=== PATIENT | male | born 1960 | race Caucasian/White ===

== ENCOUNTER 2017-10-02 15:53 | Emergency (ER) | payer OTHER ==
[~2017-10-02] VITALS: Wt 72.7 kg
[2017-10-02] MEDS ORDERED: [UNRECOGNIZED DRUG - OTHER] PO (16:03)
[2017-10-02] MEDS ORDERED: MORPHINE SUL30 M3 PO (16:04)
[2017-10-02] MEDS ORDERED: LYRICA50 MG PO (16:04)
[2017-10-02 17:16] LABS: HEMATOCRIT 24.5 % (39.0-50.0); HEMOGLOBIN 8.1 g/dl (14.0-18.0); MEAN CELL VOLUME 93.2 fL CALC (80.0-100.0); MEAN CORPUSCULAR HGB 30.8 pG CALC (26.0-32.0); MEAN CORPUSCULAR HGB CONC 33.1 g/L CALC (32.0-36.0); NEUT# 2.64 thou/uL (1.82-7.42); RED BLOOD COUNT 2.63 mill/uL (4.70-6.10); RED CELL DISTRI WIDTH 15.9 % (11.5-15.5)
[2017-10-02 17:18] LABS: ALBUMIN 3.3 g/dL (3.2-5.0); ALKALINE PHOSPHATASE 77 u/l (38-126); ANION GAP 12 (6-22 (CALC)); BILIRUBIN, TOTAL 1.5 mg/dL (0.0-1.4); BUN 15 mg/dL (9-20); BUN/CREATININE RATIO 25 (12-20 (CALC)); CARBON DIOXIDE 35 mmol/l (22-30); CHLORIDE 93 mmol/l (95-108); CREATININE 0.6 mg/dL (0.7-1.3); GFR > 60 ML/MIN (>=60 (CALC)); GFR FOR AFR.AMER. > 60 ML/MIN (>=60 (CALC)); POTASSIUM 3.8 mmol/l (3.5-5.1); SGOT/AST 38 u/l (17-59); SGPT/ALT 28 u/l (21-72); SODIUM 136 mmol/l (137-146); TOTAL PROTEIN 7.2 g/dL (6.3-8.2)
[2017-10-02 17:27] LABS: MYOGLOBIN 51 ng/mL (0 - 121)
[2017-10-02 18:14] LABS: URINE BILIRUBIN - DIPSTICK NEGATIVE (NEGATIVE); URINE BLOOD DIPSTICK NEGATIVE (NEGATIVE); URINE GLUCOSE - DIPSTICK NEGATIVE (NEGATIVE); URINE KETONE NEGATIVE (NEGATIVE); URINE LEUK ESTERASE NEGATIVE (NEGATIVE); URINE NITRITE - DIPSTICK NEGATIVE (Negative); URINE PROTEIN - DIPSTICK TRACE mg/dL (NEG-TRACE)
[2017-10-02 18:18] LABS: URINE CLARITY CLEAR
[2017-10-02 18:19] LABS: BARBITURATES NEGATIVE (NEGATIVE); COCAINE NEGATIVE (NEGATIVE); METHADONE NEGATIVE (NEGATIVE); OXCYCODONE NEGATIVE (NEGATIVE); TETRAHYDROCANNABIONOL POSITIVE (NEGATIVE); TRICYLIC ANTIDEPRESSANTS NEGATIVE (NEGATIVE); URINE COLOR DK. YELLOW
[2017-10-02] MEDS ORDERED: FEOSOL45 MG PO (18:48)
[2017-10-02] MEDS ORDERED: NAPROSYN500 MG PO (18:49)
[2017-10-02] MEDS ORDERED: LASIX20 MG PO (18:52)
[2017-10-02] MEDS ORDERED: K-TAB20 MEQ PO (18:54)
[2017-10-02 19:17] VITALS: BP 137/60
== END 2017-10-02 19:18 | disposition home or self-care (01) ==
LOC: ED 15:53
PROVIDERS: Emergency Medicine
DX: R60.0 Localized edema (principal); D64.9 Anemia, unspecified; J44.9 Chronic obstructive pulmonary disease, unspecified; C95.90 Leukemia, unspecified not having achieved remission; F17.210 Nicotine dependence, cigarettes, uncomplicated; Z99.3 Dependence on wheelchair; M79.605 Pain in left leg; M79.604 Pain in right leg; R20.2 Paresthesia of skin

== ENCOUNTER 2017-12-27 08:49 | Emergency (ER) | payer OTHER ==
[~2017-12-27] VITALS: Ht 180.3 cm; Wt 82.0 kg
[~2017-12-27 08:49] MED LIST: FEOSOL45 MG PO; K-TAB20 MEQ PO; LASIX20 MG PO; LYRICA50 MG PO; MORPHINE PO; MORPHINE SUL30 M3 PO; NALTREXONE PO; NAPROSYN500 MG PO; [UNRECOGNIZED DRUG - OTHER] PO
[2017-12-27] MEDS ORDERED: ALLOPURINOL300 MG PO (09:20)
[2017-12-27] MEDS ORDERED: ASPIRIN81 MG PO (09:20)
[2017-12-27] MEDS ORDERED: HYDROXYUREA500 MG PO (09:21)
[2017-12-27] MEDS ORDERED: METOPROL TAR25 MG PO (09:22)
[2017-12-27] MEDS ORDERED: LYRICA300 MG PO (09:23)
[2017-12-27] MEDS ORDERED: RENAGEL 800MG800 MG PO ×2 (09:24→11:04)
[2017-12-27] MEDS ORDERED: HYDROMORPHON4 MG PO (09:25)
[2017-12-27] MEDS ORDERED: PONATINIB PO (09:27)
[2017-12-27 09:44] LABS: URINE BILIRUBIN - DIPSTICK NEGATIVE (NEGATIVE); URINE BLOOD DIPSTICK MODERATE (NEGATIVE); URINE COLOR YELLOW; URINE GLUCOSE - DIPSTICK NEGATIVE (NEGATIVE); URINE KETONE NEGATIVE (NEGATIVE); URINE NITRITE - DIPSTICK NEGATIVE (Negative); URINE PROTEIN - DIPSTICK 30 mg/dL (NEG-TRACE); URINE SPECIFIC GRAVITY 1.025
[2017-12-27 09:46] LABS: URINE CLARITY TURBID; URINE LEUK ESTERASE SMALL (NEGATIVE); URINE WBC 20-50 WBC/hpf (0-5)
[2017-12-27 09:47] LABS: URINE BACTERIA MODERATE hpf; URINE EPITHELIAL CELLS MANY EPI/hpf (0-FEW)
[2017-12-27 09:51] LABS: BARBITURATES NEGATIVE (NEGATIVE); COCAINE NEGATIVE (NEGATIVE); METHADONE NEGATIVE (NEGATIVE); OXCYCODONE NEGATIVE (NEGATIVE); TETRAHYDROCANNABIONOL NEGATIVE (NEGATIVE); TRICYLIC ANTIDEPRESSANTS NEGATIVE (NEGATIVE)
[2017-12-27 10:30] LABS: HEMOGLOBIN 9.2 g/dl (14.0-18.0); MEAN CELL VOLUME 93.9 fL CALC (80.0-100.0); MEAN CORPUSCULAR HGB 29.8 pG CALC (26.0-32.0); MEAN CORPUSCULAR HGB CONC 31.7 g/L CALC (32.0-36.0); NEUT# 9.19 thou/uL (1.82-7.42); RED BLOOD COUNT 3.09 mill/uL (4.70-6.10); RED CELL DISTRI WIDTH 17.2 % (11.5-15.5)
[2017-12-27 10:38] LABS: ALKALINE PHOSPHATASE 120 u/l (38-126); BILIRUBIN, TOTAL 1.6 mg/dL (0.0-1.4); CARBON DIOXIDE 23 mmol/l (22-30); CHLORIDE 110 mmol/l (95-108); MAGNESIUM 2.2 mg/dL (1.6-2.3); SGOT/AST 58 u/l (17-59); SODIUM 145 mmol/l (137-146); TOTAL PROTEIN 7.7 g/dL (6.3-8.2)
[2017-12-27 10:42] LABS: ALBUMIN 3.9 g/dL (3.2-5.0); ANION GAP 18 (6-22 (CALC)); BUN 93 mg/dL (9-20); BUN/CREATININE RATIO 36 (12-20 (CALC)); CREATININE 2.6 mg/dL (0.7-1.3); ETHYL ALCOHOL 0 mg/dl (0-30); GFR 25 ML/MIN (>=60 (CALC)); GFR FOR AFR.AMER. 31 ML/MIN (>=60 (CALC)); POTASSIUM 6.1 mmol/l (3.5-5.1)
[2017-12-27] MEDS ORDERED: FUROSEMIDE20 MG PO (10:57)
[2017-12-27] MEDS ORDERED: K-DUR/KLOR-CON20 MEQ PO (10:58)
[2017-12-27] MEDS ORDERED: MORPHINE SULFAT30 M1 PO (10:59)
[2017-12-27] MEDS ORDERED: ICLUSIG PO (11:03)
[2017-12-27 11:04] LABS: INTERNATIONAL NORMALIZED RATIO 1.1 RATIO (0.7-1.3); PROTHROMBIN TIME 11.1 SECONDS (9.0-12.5)
[2017-12-27 12:50] VITALS: BP 116/73
== END 2017-12-27 12:50 | disposition short-term general hospital (02) ==
LOC: ED 08:49
PROVIDERS: Emergency Medicine
DX: N17.9 Acute kidney failure, unspecified (principal); J18.9 Pneumonia, unspecified organism; E87.5 Hyperkalemia; F19.10 Other psychoactive substance abuse, uncomplicated; N39.0 Urinary tract infection, site not specified; C95.90 Leukemia, unspecified not having achieved remission; J44.9 Chronic obstructive pulmonary disease, unspecified; R20.2 Paresthesia of skin; Z95.2 Presence of prosthetic heart valve; Z86.718 Personal history of other venous thrombosis and embolism; Z99.3 Dependence on wheelchair; Z79.899 Other long term (current) drug therapy

== ENCOUNTER 2018-04-05 08:32 | Outpatient (RCR) | payer OTHER ==
[~2018-04-05 08:32] MED LIST changes: +ALLOPURINOL300 MG PO; +ASPIRIN81 MG PO; +FUROSEMIDE20 MG PO; +HYDROMORPHON4 MG PO; +HYDROXYUREA500 MG PO; +ICLUSIG PO; +K-DUR/KLOR-CON20 MEQ PO; +LYRICA300 MG PO; +METOPROL TAR25 MG PO; +MORPHINE SULFAT30 M1 PO; +PONATINIB PO; +RENAGEL 800MG800 MG PO
== END 2018-04-05 11:00 | disposition home or self-care (01) ==
LOC: OPWC 08:32
PROVIDERS: ATTEND Surgery
DX: L89.314 Pressure ulcer of right buttock, stage 4 (principal); L89.324 Pressure ulcer of left buttock, stage 4; C95.11 Chronic leukemia of unspecified cell type, in remission; G82.22 Paraplegia, incomplete; R50.9 Fever, unspecified
CPT/HCPCS: A6021; A6212; A6214; Q4186

== ENCOUNTER 2018-04-05 10:06 | Emergency (ER) | payer OTHER ==
[~2018-04-05] VITALS: Ht 180.3 cm; Wt 70.0 kg
[2018-04-05 11:38] LABS: IMMATURE GRANULOCYTES 5.5 % (0.0-5.0); MEAN CORPUSCULAR HGB 27.3 pG CALC (26.0-32.0); MEAN CORPUSCULAR HGB CONC 31.5 g/L CALC (32.0-36.0); RED BLOOD COUNT 4.18 mill/uL (4.70-6.10); RED CELL DISTRI WIDTH 14.9 % (11.5-15.5)
[2018-04-05 11:50] LABS: ALKALINE PHOSPHATASE 105 u/l (38-126); BILIRUBIN, TOTAL 0.9 mg/dL (0.0-1.4); BUN 53 mg/dL (9-20); CARBON DIOXIDE 27 mmol/l (22-30); CHLORIDE 97 mmol/l (95-108); SGOT/AST 38 u/l (17-59); TOTAL PROTEIN 7.1 g/dL (6.3-8.2)
[2018-04-05 11:51] LABS: ANION GAP 17 (6-22 (CALC)); BUN/CREATININE RATIO 53 (12-20 (CALC)); GFR > 60 ML/MIN (>=60 (CALC)); GFR FOR AFR.AMER. > 60 ML/MIN (>=60 (CALC))
[2018-04-05 11:52] LABS: ALBUMIN 3.1 g/dL (3.2-5.0); POTASSIUM 4.7 mmol/l (3.5-5.1); SODIUM 136 mmol/l (137-146)
[2018-04-05 12:17] LABS: HEMATOCRIT 36.2 % (39.0-50.0); HEMOGLOBIN 11.4 g/dl (14.0-18.0); MEAN CELL VOLUME 86.6 fL CALC (80.0-100.0); PLATELET COUNT 207 thou/uL (130-400)
[2018-04-05 12:18] LABS: MANUAL DIFFERENTIAL YES
[2018-04-05 12:20] LABS: BAND 6 % (0-8)
[2018-04-05 14:20] LABS: URINE BILIRUBIN - DIPSTICK NEGATIVE (NEGATIVE); URINE BLOOD DIPSTICK TRACE-INTACT (NEGATIVE); URINE COLOR YELLOW; URINE GLUCOSE - DIPSTICK NEGATIVE (NEGATIVE); URINE KETONE NEGATIVE (NEGATIVE); URINE LEUK ESTERASE NEGATIVE (NEGATIVE); URINE NITRITE - DIPSTICK NEGATIVE (Negative); URINE PROTEIN - DIPSTICK TRACE mg/dL (NEG-TRACE); URINE SPECIFIC GRAVITY 1.015; URINE UROBILINOGEN - DIPSTICK 0.2 E.U./dL (0.2)
[2018-04-05 14:27] LABS: BARBITURATES NEGATIVE (NEGATIVE); COCAINE NEGATIVE (NEGATIVE); METHADONE NEGATIVE (NEGATIVE); OXCYCODONE NEGATIVE (NEGATIVE); TETRAHYDROCANNABIONOL NEGATIVE (NEGATIVE); TRICYLIC ANTIDEPRESSANTS NEGATIVE (NEGATIVE)
[2018-04-05 15:17] VITALS: BP 90/71
--- NOTE | 2018-04-07 07:41 | NUR ---
Faxed preliminary blood cultures to [facility]
== END 2018-04-05 15:04 | disposition short-term general hospital (02) ==
LOC: ED 10:06
PROVIDERS: Emergency Medicine
DX: T50.901A Poisoning by unspecified drugs, medicaments and biological substances, accidental (unintentional), initial encounter (principal); N28.9 Disorder of kidney and ureter, unspecified; R50.9 Fever, unspecified; R42 Dizziness and giddiness; R00.0 Tachycardia, unspecified; I95.9 Hypotension, unspecified; R53.1 Weakness; F19.10 Other psychoactive substance abuse, uncomplicated; J44.9 Chronic obstructive pulmonary disease, unspecified; C95.90 Leukemia, unspecified not having achieved remission; R20.2 Paresthesia of skin; L89.159 Pressure ulcer of sacral region, unspecified stage; Z95.2 Presence of prosthetic heart valve; Z86.718 Personal history of other venous thrombosis and embolism